=== PATIENT | male | born 1995 | race Two or more races ===

== ENCOUNTER 2018-01-30 20:42 | Emergency (ER) | payer MEDICAID ==
[~2018-01-30] VITALS: Ht 162.6 cm; Wt 78.3 kg
[2018-01-30 20:43] VITALS: BP 147/91
== END 2018-01-30 21:51 | disposition home or self-care (01) ==
LOC: ED 21:45
DX: S21.119D Laceration without foreign body of unspecified front wall of thorax without penetration into thoracic cavity, subsequent encounter (principal)
CPT/HCPCS: 99281